=== PATIENT | female | born 1990 | race Caucasian/White ===

== ENCOUNTER 2021-05-06 08:15 | Emergency (ER) | payer BC ==
[~2021-05-06] VITALS: Ht 162.6 cm; Wt 83.5 kg
[2021-05-06] MEDS ORDERED: DEXAMETHASONE SOD PHOS 10 MG/1 ML VIAL IM STA (08:30)
[2021-05-06] MEDS ORDERED: KETOROLAC TROMETHAMINE 60 MG/2 ML VIAL IM ONE (08:30)
[2021-05-06] MEDS ORDERED: DEXAMETHASONE SOD PHOS INJ 4 MG/ML SDV ONE (08:49)
[2021-05-06] MEDS ORDERED: IBUPROFEN 600 MG TAB PO STA (09:37)
[2021-05-06] MEDS ORDERED: ACETAMINOPHEN 325 MG TAB PO STA (09:37)
[2021-05-06] MEDS ORDERED: VENTOLIN HFA18 GM INH (10:18)
[2021-05-06] MEDS ORDERED: PREDNISONE20 MG PO (10:18)
[2021-05-06] MEDS ORDERED: ACETAMINOPHEN-1 EAC4 PO (10:18)
[2021-05-06] MEDS ORDERED: TAMIFLU75 MG PO (10:18)
[2021-05-06] MEDS ORDERED: ONDANSETRON ODT4 MG PO (10:20)
== END 2021-05-06 10:35 | disposition home or self-care (01) ==
LOC: FSED 08:29
DX: J10.1 Influenza due to other identified influenza virus with other respiratory manifestations (principal); N83.201 Unspecified ovarian cyst, right side; N20.0 Calculus of kidney; Z88.8 Allergy status to other drugs, medicaments and biological substances
CPT/HCPCS: 74176; 81003; 81025; 83518; 87400; 96372; 99283; J1100 ×2; J1885